=== PATIENT | male | born 1975 | race Two or more races ===

== ENCOUNTER 2017-09-30 22:35 | Inpatient (IN) | payer OTHER ==
[~2017-09-30] VITALS: Ht 180.3 cm; Wt 93.7 kg
[2017-09-30] MEDS ORDERED: REGULAR INSULIN 62.5 UNITS in SODIUM CHLORIDE 0.9% 249.375 ML IV PRN (22:38)
[2017-09-30] MEDS ORDERED: MIDAZOLAM 1 MG/ML, 5ML ONE (23:00)
[2017-09-30] MEDS ORDERED: PROPOFOL 10 MG/ML, 100ML IV ONE (23:00)
[2017-09-30] MEDS ORDERED: SODIUM CHLORIDE 0.9% 1,000ML IVBOLUS ONE (23:00)
[2017-09-30] MEDS ORDERED: PLEASE ENTER ALLERGIES MC SCH ×2 (23:00)
[2017-09-30] MEDS ORDERED: SUCCINYLCHOLINE 20 MG/ML, 10ML ONE (23:00)
[2017-09-30 23:15] LABS: HEMATOCRIT 48.1 % (39.2-51.8); HEMOGLOBIN 15.9 g/dL (13.7-18.0); WHITE BLOOD COUNT 23.5 x10^3/uL (3.4-10)
[2017-09-30 23:18] LABS: DIFF TOTAL CELLS COUNTED 100 CELL DIFF
[2017-09-30 23:24] LABS: ASPARTATE AMINO TRANSFERASE 74 U/L (15-37); BLOOD UREA NITROGEN 23 mg/dL (7-18)
[2017-09-30 23:30] LABS: VERIFY COUNTS? YES
[2017-09-30] MEDS ORDERED: SODIUM BICARBONATE 8.4% 150 MEQ in SODIUM CHLORIDE 0.45% 1,000 ML IV SCH (23:30)
[2017-09-30 23:31] LABS: ANISOCYTOSIS 1+; POLYCHROMASIA 1+
[2017-09-30 23:33] LABS: LARGE PLATELETS 1+
[2017-09-30] MEDS ORDERED: D5%-0.45% NACL 1,000 ML IV SCH (23:43)
[2017-09-30] MEDS ORDERED: MECL-76 PO (23:46)
[2017-09-30] MEDS: SODIUM CHLORIDE 0.9% 1,000 ML IV SCH (23:55)
[2017-10-01] MEDS ORDERED: hydrALAzine 20 MG/ML, 1ML IVPush PRN
[2017-10-01] MEDS ORDERED: ONDANSETRON 2MG/ML, 2ML IVPush PRN ×2
[2017-10-01] MEDS ORDERED: POTASSIUM CHLORIDE 40 MEQ in SODIUM CHLORIDE 0.9% 500 ML IV ONE
[2017-10-01] MEDS ORDERED: SODIUM CHLORIDE 0.9% 1,000 ML IV SCH
[2017-10-01] MEDS ORDERED: LORazepam 2 MG/ML, 1ML IVPush PRN
[2017-10-01] MEDS ORDERED: HYDROmorphone 2 MG/ML, 1ML IVPush PRN
[2017-10-01] MEDS ORDERED: SODIUM BICARB 8.4%, 50ML SYRINGE IVPB PRN
[2017-10-01] MEDS ORDERED: SODIUM CHLORIDE 0.9% 2,000 ML IV ONE
[2017-10-01] MEDS ORDERED: PIPERACILLIN/TAZO/PMX 3.375GM 50 ML ONE (00:27)
[2017-10-01] MEDS ORDERED: VANCOMYCIN PER PHARMACY MC PRN (00:30)
[2017-10-01 00:35] LABS: ABG COLLECTION SITE LEFT RADIAL; COLLATERAL CIRCULATION TESTING NORMAL
[2017-10-01] MEDS ORDERED: PHARMACOKINETIC CONSULTATION MC ONE (01:00)
[2017-10-01] MEDS ORDERED: VANCOMYCIN 1,500 MG in SODIUM CHLORIDE 0.9% 250 ML IV SCH (01:00)
[2017-10-01] MEDS ORDERED: PHARMACOKINETIC MONITORING MC PRN (01:00)
[2017-10-01] MEDS: PIPERACILLIN/TAZO/PMX 3.375GM 50 ML IV SCH ×3 (01:13→16:41)
[2017-10-01] MEDS: ENOXAPARIN 40 MG/0.4 ML SQ SCH (02:06)
[2017-10-01 02:44] LABS: BLOOD UREA NITROGEN 22 mg/dL (7-18)
[2017-10-01] MEDS: SODIUM CHLORIDE 0.9% 1,000 ML IV SCH ×6 (03:12→23:18)
[2017-10-01 04:03] LABS: BLOOD UREA NITROGEN 21 mg/dL (7-18)
[2017-10-01 04:23] VITALS: BP 133/65
[2017-10-01 04:27] LABS: ABG COLLECTION SITE RIGHT BRACHIAL
[2017-10-01 04:32] VITALS: BP 123/52
[2017-10-01] MEDS: REGULAR INSULIN 62.5 UNITS in SODIUM CHLORIDE 0.9% 249.375 ML IV PRN ×4 (05:10→21:30)
[2017-10-01] MEDS ORDERED: PROPOFOL 100 ML IV ONE (05:57)
[2017-10-01] MEDS ORDERED: LIDOCAINE-MPF 1%, 2ML ENDO PRN (06:30)
[2017-10-01] MEDS ORDERED: SENNOSIDES 8.8 MG/5 ML ORAL SOL NG PRN (06:30)
[2017-10-01] MEDS ORDERED: SODIUM CHLORIDE 0.9% 1,000ML IV SCH (06:30)
[2017-10-01] MEDS ORDERED: PHARMACY MAY ADJ FOR RENAL FX MC SCH (06:30)
[2017-10-01] MEDS ORDERED: SENNA/DOCUSATE TABLET NG PRN (06:30)
[2017-10-01] MEDS: ALBUTEROL/IPRATROPIUM 2.5MG/0.5MG, 3 ML INLINE SCH ×5 (06:30→22:25)
[2017-10-01] MEDS ORDERED: BISACODYL 10 MG SUPP PR PRN (06:30)
[2017-10-01] MEDS ORDERED: LACTULOSE 20 GM/30 ML UDC NG PRN (06:30)
[2017-10-01] MEDS: PROPOFOL 100 ML IV PRN ×4 (06:48→20:43)
[2017-10-01] MEDS: FAMOTIDINE 20 MG/2 ML IV SCH ×2 (06:49→18:40)
[2017-10-01 06:53] LABS: ABG COLLECTION SITE RIGHT RADIAL; COLLATERAL CIRCULATION TESTING NORMAL
[2017-10-01] MEDS ORDERED: SODIUM CHLORIDE 0.9% 1,000ML IVBOLUS ONE (07:00)
[2017-10-01] MEDS ORDERED: CETACAINE 50ML TP ONE (07:30)
[2017-10-01] MEDS ORDERED: PANTOPRAZOLE 40 MG IV IVPush SCH (07:30)
[2017-10-01 08:56] LABS: BLOOD UREA NITROGEN 22 mg/dL (7-18)
[2017-10-01] MEDS ORDERED: POTASSIUM CHLORIDE 20 MEQ PACKET PO ONE ×2 (11:00→20:30)
[2017-10-01] MEDS ORDERED: BENZOCAINE 20% SPRAY 0.5ML TP ONE (14:00)
[2017-10-01] MEDS: VANCOMYCIN 1,400 MG in SODIUM CHLORIDE 0.9% 250 ML IV SCH (15:10)
[2017-10-01 15:29] LABS: BLOOD UREA NITROGEN 20 mg/dL (7-18)
[2017-10-01 15:31] LABS: DAU SCREEN DISCLAIMER
[2017-10-01] MEDS: POTASSIUM CHLORIDE 20 MEQ PACKET PO SCH (18:39)
[2017-10-01] MEDS: FENTANYL PF 100 MCG/2ML IVPush PRN (19:41)
[2017-10-01 19:57] LABS: BLOOD UREA NITROGEN 19 mg/dL (7-18)
[2017-10-01] MEDS: D5%-0.45% NACL 1,000 ML IV SCH (23:12)
[2017-10-01 23:32] LABS: BLOOD UREA NITROGEN 17 mg/dL (7-18)
[2017-10-01] MEDS ORDERED: D5%-0.45% NACL 1,000 ML IV SCH (23:43)
[2017-10-02] MEDS: ENOXAPARIN 40 MG/0.4 ML SQ SCH (00:20)
[2017-10-02] MEDS: PIPERACILLIN/TAZO/PMX 3.375GM 50 ML IV SCH ×3 (00:20→16:25)
[2017-10-02] MEDS ORDERED: POTASSIUM CHLORIDE 20 MEQ PACKET PO SCH ×3 (01:00→06:00)
[2017-10-02] MEDS: POTASSIUM CHLORIDE 20 MEQ PACKET PO SCH ×2 (01:04→06:22)
[2017-10-02] MEDS: REGULAR INSULIN 62.5 UNITS in SODIUM CHLORIDE 0.9% 249.375 ML IV PRN ×3 (01:05→14:36)
[2017-10-02] MEDS: PROPOFOL 100 ML IV PRN ×6 (01:05→22:29)
[2017-10-02] MEDS: ALBUTEROL/IPRATROPIUM 2.5MG/0.5MG, 3 ML INLINE SCH ×6 (02:19→22:19)
[2017-10-02 03:14] LABS: ABG COLLECTION SITE LEFT RADIAL; COLLATERAL CIRCULATION TESTING NORMAL
[2017-10-02 03:27] LABS: ASPARTATE AMINO TRANSFERASE 44 U/L (15-37); BLOOD UREA NITROGEN 16 mg/dL (7-18)
[2017-10-02 04:10] VITALS: BP 132/69
[2017-10-02] MEDS: SODIUM CHLORIDE 0.9% 1,000 ML IV SCH ×2 (04:43→05:21)
[2017-10-02 06:03] LABS: HEMATOCRIT 33.2 % (39.2-51.8); HEMOGLOBIN 11.8 g/dL (13.7-18.0); WHITE BLOOD COUNT 8.8 x10^3/uL (3.4-10)
[2017-10-02 06:05] LABS: DIFF TOTAL CELLS COUNTED 100 CELL DIFF
[2017-10-02] MEDS: D5%-0.45% NACL 1,000 ML IV SCH (06:05)
[2017-10-02 06:09] LABS: VERIFY COUNTS? YES
[2017-10-02 06:10] LABS: ANISOCYTOSIS 1+
[2017-10-02 06:11] LABS: LARGE PLATELETS 1+; POLYCHROMASIA 1+
[2017-10-02] MEDS: FAMOTIDINE 20 MG/2 ML IV SCH ×2 (06:43→18:43)
[2017-10-02 08:14] LABS: BLOOD UREA NITROGEN 15 mg/dL (7-18)
[2017-10-02] MEDS: VANCOMYCIN 1,400 MG in SODIUM CHLORIDE 0.9% 250 ML IV SCH (08:55)
[2017-10-02] MEDS ORDERED: SODIUM PHOSPHATE 20 MMOL in SODIUM CHLORIDE 0.9% 500 ML IV ONE ×2 (09:00→17:30)
[2017-10-02] MEDS: POTASSIUM CHLORIDE 20 MEQ in D5%-0.45% NACL 1,000 ML IV SCH ×3 (10:17→23:47)
[2017-10-02 11:26] LABS: RAPID INFLUENZA A Negative (Negative)
[2017-10-02 11:27] LABS: RAPID INFLUENZA B Negative (Negative)
[2017-10-02 12:21] LABS: BLOOD UREA NITROGEN 14 mg/dL (7-18)
[2017-10-02] MEDS ORDERED: POTASSIUM CHLORIDE 10% 40 MEQ/30 ML UDC PO ONE (13:30)
[2017-10-02 15:39] LABS: BLOOD UREA NITROGEN 14 mg/dL (7-18)
[2017-10-02] MEDS ORDERED: POTASSIUM CHLORIDE 10% 20 MEQ/15 ML UDC PO ONE (16:30)
[2017-10-02 19:25] LABS: BLOOD UREA NITROGEN 14 mg/dL (7-18)
[2017-10-02] MEDS ORDERED: BISACODYL 10 MG SUPP PR PRN (20:00)
[2017-10-02] MEDS ORDERED: PHARMACOKINETIC MONITORING MC PRN (20:00)
[2017-10-02] MEDS ORDERED: ONDANSETRON 2MG/ML, 2ML IVPush PRN (20:00)
[2017-10-02] MEDS ORDERED: hydrALAzine 20 MG/ML, 1ML IVPush PRN (20:00)
[2017-10-02] MEDS ORDERED: LORazepam 2 MG/ML, 1ML IVPush PRN (20:00)
[2017-10-02] MEDS ORDERED: VANCOMYCIN PER PHARMACY MC PRN (20:00)
[2017-10-02] MEDS ORDERED: PHARMACY MAY ADJ FOR RENAL FX MC SCH (20:00)
[2017-10-02] MEDS: REGULAR INSULIN IV PRN (21:01)
[2017-10-02] MEDS: SODIUM CHLORIDE 0.9% IV PRN (21:01)
[2017-10-02] MEDS ORDERED: POTASSIUM CHLORIDE 20 MEQ in D5%-0.45% NACL 1,000 ML IV SCH (23:43)
[2017-10-02 23:48] LABS: BLOOD UREA NITROGEN 14 mg/dL (7-18)
[2017-10-03] MEDS: ENOXAPARIN 40 MG/0.4 ML SQ SCH (00:24)
[2017-10-03] MEDS: PIPERACILLIN/TAZO/PMX 3.375GM 50 ML IV SCH ×3 (00:24→15:50)
[2017-10-03] MEDS ORDERED: POTASSIUM CHLORIDE 20 MEQ PACKET PO ONE (00:30)
[2017-10-03] MEDS ORDERED: POTASSIUM PHOSPHATE 44 MEQ in SODIUM CHLORIDE 0.9% 500 ML IV ONE ×2 (01:00→14:30)
[2017-10-03] MEDS: VANCOMYCIN 1,400 MG in SODIUM CHLORIDE 0.9% 250 ML IV SCH ×2 (01:20→21:25)
[2017-10-03] MEDS: ALBUTEROL/IPRATROPIUM 2.5MG/0.5MG, 3 ML INLINE SCH ×6 (02:26→22:16)
[2017-10-03 03:02] LABS: BLOOD UREA NITROGEN 14 mg/dL (7-18)
[2017-10-03] MEDS: PROPOFOL 100 ML IV PRN ×4 (03:10→17:38)
[2017-10-03 04:00] VITALS: BP 110/64
[2017-10-03 04:16] LABS: ABG COLLECTION SITE RIGHT BRACHIAL
[2017-10-03 04:29] LABS: BLOOD UREA NITROGEN 14 mg/dL (7-18)
[2017-10-03 04:32] LABS: HEMATOCRIT 27.2 % (39.2-51.8); HEMOGLOBIN 9.5 g/dL (13.7-18.0); WHITE BLOOD COUNT 9.1 x10^3/uL (3.4-10)
[2017-10-03 05:39] LABS: DIFF TOTAL CELLS COUNTED 100 CELL DIFF
[2017-10-03 05:43] LABS: VERIFY COUNTS? YES
[2017-10-03 05:44] LABS: ANISOCYTOSIS 1+; LARGE PLATELETS 1+
[2017-10-03] MEDS: POTASSIUM CHLORIDE 20 MEQ in D5%-0.45% NACL 1,000 ML IV SCH (06:09)
[2017-10-03] MEDS: FAMOTIDINE 20 MG/2 ML IV SCH ×2 (06:31→17:37)
[2017-10-03] MEDS: REGULAR INSULIN IV PRN ×2 (08:33→22:28)
[2017-10-03] MEDS: SODIUM CHLORIDE 0.9% IV PRN ×2 (08:33→22:28)
[2017-10-03] MEDS: POTASSIUM CHLORIDE 20 MEQ in DEXTROSE 5% 1,000 ML IV SCH ×3 (08:49→22:27)
[2017-10-03 09:34] LABS: BLOOD UREA NITROGEN 14 mg/dL (7-18)
[2017-10-03 12:53] LABS: POTASSIUM,URINE RANDOM 28 mmol/L
[2017-10-03 13:10] LABS: BLOOD UREA NITROGEN 14 mg/dL (7-18)
[2017-10-03] MEDS: FENTANYL PF 100 MCG/2ML IVPush PRN ×5 (14:46→22:27)
[2017-10-03 19:27] LABS: BLOOD UREA NITROGEN 15 mg/dL (7-18)
[2017-10-03 23:00] LABS: BLOOD UREA NITROGEN 16 mg/dL (7-18)
[2017-10-04] MEDS: ENOXAPARIN 40 MG/0.4 ML SQ SCH (00:05)
[2017-10-04] MEDS: PIPERACILLIN/TAZO/PMX 3.375GM 50 ML IV SCH ×3 (00:05→17:03)
[2017-10-04] MEDS: ALBUTEROL/IPRATROPIUM 2.5MG/0.5MG, 3 ML INLINE SCH ×6 (02:30→22:13)
[2017-10-04 03:18] LABS: BLOOD UREA NITROGEN 16 mg/dL (7-18)
[2017-10-04] MEDS: PROPOFOL 100 ML IV PRN ×4 (03:33→21:00)
[2017-10-04] MEDS: FENTANYL PF 100 MCG/2ML IVPush PRN ×5 (03:33→18:07)
[2017-10-04 04:00] VITALS: BP 99/58
[2017-10-04] MEDS: FAMOTIDINE 20 MG/2 ML IV SCH ×2 (05:56→19:28)
[2017-10-04] MEDS: POTASSIUM CHLORIDE 20 MEQ in DEXTROSE 5% 1,000 ML IV SCH ×3 (06:30→19:29)
[2017-10-04 06:41] LABS: ABG COLLECTION SITE LEFT RADIAL; COLLATERAL CIRCULATION TESTING NORMAL
[2017-10-04 06:45] LABS: HEMATOCRIT 28.7 % (39.2-51.8); WHITE BLOOD COUNT 8.9 x10^3/uL (3.4-10)
[2017-10-04 06:50] LABS: BLOOD UREA NITROGEN 17 mg/dL (7-18)
[2017-10-04] MEDS ORDERED: MAGNESIUM SULFATE PMX 4GM/100M 100 ML IV ONE (07:30)
[2017-10-04 11:10] LABS: BLOOD UREA NITROGEN 16 mg/dL (7-18)
[2017-10-04 12:23] LABS: FERRITIN 640.8 ng/mL (26-388)
[2017-10-04 15:16] LABS: BLOOD UREA NITROGEN 15 mg/dL (7-18)
[2017-10-04] MEDS: VANCOMYCIN 1,400 MG in SODIUM CHLORIDE 0.9% 250 ML IV SCH (15:26)
[2017-10-04] MEDS: REGULAR INSULIN IV PRN ×2 (17:04→22:03)
[2017-10-04] MEDS: SODIUM CHLORIDE 0.9% IV PRN ×2 (17:04→22:03)
[2017-10-04 19:26] LABS: BLOOD UREA NITROGEN 16 mg/dL (7-18)
[2017-10-04 23:55] LABS: BLOOD UREA NITROGEN 15 mg/dL (7-18)
[2017-10-05] MEDS: PROPOFOL 100 ML IV PRN ×5 (01:25→18:49)
[2017-10-05] MEDS: PIPERACILLIN/TAZO/PMX 3.375GM 50 ML IV SCH ×3 (01:29→15:55)
[2017-10-05] MEDS: ENOXAPARIN 40 MG/0.4 ML SQ SCH (01:29)
[2017-10-05] MEDS: ALBUTEROL/IPRATROPIUM 2.5MG/0.5MG, 3 ML INLINE SCH ×6 (02:13→22:30)
[2017-10-05] MEDS: FENTANYL PF 100 MCG/2ML IVPush PRN ×2 (03:53→09:07)
[2017-10-05 04:00] VITALS: BP 146/84
[2017-10-05 04:48] LABS: ABG COLLECTION SITE RIGHT RADIAL; COLLATERAL CIRCULATION TESTING NORMAL
[2017-10-05 04:55] LABS: BLOOD UREA NITROGEN 15 mg/dL (7-18)
[2017-10-05] MEDS: POTASSIUM CHLORIDE 20 MEQ in DEXTROSE 5% 1,000 ML IV SCH ×2 (05:27→07:38)
[2017-10-05 06:13] LABS: HEMATOCRIT 25.9 % (39.2-51.8); HEMOGLOBIN 9.3 g/dL (13.7-18.0); WHITE BLOOD COUNT 7.9 x10^3/uL (3.4-10)
[2017-10-05 06:47] LABS: DIFF TOTAL CELLS COUNTED 100 CELL DIFF
[2017-10-05 06:49] LABS: VERIFY COUNTS? YES
[2017-10-05 06:50] LABS: ANISOCYTOSIS 1+; LARGE PLATELETS 1+; POLYCHROMASIA 1+
[2017-10-05 07:18] LABS: BLOOD UREA NITROGEN 14 mg/dL (7-18)
[2017-10-05] MEDS ORDERED: INSULIN DETEMIR 100 UNITS/ML, PEN SQ-INSULIN SCH (08:30)
[2017-10-05] MEDS: VANCOMYCIN 1,400 MG in SODIUM CHLORIDE 0.9% 250 ML IV SCH (09:00)
[2017-10-05] MEDS: FAMOTIDINE 20 MG/2 ML IV SCH ×2 (09:07→20:28)
[2017-10-05] MEDS: THIAMINE 100 MG in SODIUM CHLORIDE 0.9% 50 ML IV SCH (09:07)
[2017-10-05] MEDS: INSULIN ASPART 100 UNITS/ML, 3ML PEN MEDIUM DOSE SS SQ-INSULIN SCH ×2 (09:24→15:55)
[2017-10-05] MEDS ORDERED: VASOPRESSIN 100 UNIT in SODIUM CHLORIDE 0.9% 495 ML IV PRN (10:00)
[2017-10-05 10:51] LABS: BLOOD UREA NITROGEN 14 mg/dL (7-18)
[2017-10-05] MEDS ORDERED: VANCOMYCIN 1,500 MG in SODIUM CHLORIDE 0.9% 250 ML IV SCH (12:00)
[2017-10-05 15:15] LABS: BLOOD UREA NITROGEN 17 mg/dL (7-18)
[2017-10-05] MEDS ORDERED: INSULIN ASPART 100 UNITS/ML, PEN SQ-INSULIN ONE (17:00)
[2017-10-05] MEDS: INSULIN ASPART 100 UNITS/ML, PEN SQ-INSULIN SCH ×2 (18:51→23:17)
[2017-10-05 19:07] LABS: BLOOD UREA NITROGEN 18 mg/dL (7-18)
[2017-10-05] MEDS: INSULIN DETEMIR 100 UNITS/ML, PEN SQ-INSULIN SCH (20:28)
[2017-10-05 23:33] LABS: BLOOD UREA NITROGEN 21 mg/dL (7-18)
[2017-10-06] MEDS: ENOXAPARIN 40 MG/0.4 ML SQ SCH (00:10)
[2017-10-06] MEDS: PIPERACILLIN/TAZO/PMX 3.375GM 50 ML IV SCH ×3 (00:10→16:14)
[2017-10-06] MEDS: PROPOFOL 100 ML IV PRN ×4 (00:11→18:56)
[2017-10-06] MEDS: ALBUTEROL/IPRATROPIUM 2.5MG/0.5MG, 3 ML INLINE SCH ×6 (02:01→22:04)
[2017-10-06] MEDS: FENTANYL PF 100 MCG/2ML IVPush PRN ×2 (02:55→12:07)
[2017-10-06] MEDS: INSULIN ASPART 100 UNITS/ML, PEN SQ-INSULIN SCH ×6 (03:09→23:23)
[2017-10-06 03:27] LABS: ABG COLLECTION SITE RIGHT RADIAL; COLLATERAL CIRCULATION TESTING NORMAL
[2017-10-06 03:32] LABS: HEMATOCRIT 27.4 % (39.2-51.8); HEMOGLOBIN 9.4 g/dL (13.7-18.0); WHITE BLOOD COUNT 8.9 x10^3/uL (3.4-10)
[2017-10-06 03:39] LABS: BLOOD UREA NITROGEN 23 mg/dL (7-18)
[2017-10-06 04:00] VITALS: BP 143/87
[2017-10-06 07:37] LABS: BLOOD UREA NITROGEN 23 mg/dL (7-18)
[2017-10-06] MEDS: INSULIN DETEMIR 100 UNITS/ML, PEN SQ-INSULIN SCH ×2 (07:47→19:49)
[2017-10-06] MEDS: FAMOTIDINE 20 MG/2 ML IV SCH ×2 (07:47→21:54)
[2017-10-06] MEDS: THIAMINE 100 MG in SODIUM CHLORIDE 0.9% 50 ML IV SCH (08:41)
[2017-10-07] MEDS: ENOXAPARIN 40 MG/0.4 ML SQ SCH ×2 (00:09→23:58)
[2017-10-07] MEDS: PROPOFOL 100 ML IV PRN ×2 (00:10→03:13)
[2017-10-07] MEDS: PIPERACILLIN/TAZO/PMX 3.375GM 50 ML IV SCH ×2 (00:48→09:02)
[2017-10-07] MEDS: ALBUTEROL/IPRATROPIUM 2.5MG/0.5MG, 3 ML INLINE SCH ×3 (02:08→10:06)
[2017-10-07] MEDS: INSULIN ASPART 100 UNITS/ML, PEN SQ-INSULIN SCH ×6 (03:16→23:57)
[2017-10-07 04:00] VITALS: BP 132/81
[2017-10-07 05:07] LABS: ABG COLLECTION SITE RIGHT RADIAL; COLLATERAL CIRCULATION TESTING NORMAL
[2017-10-07 05:08] LABS: BLOOD UREA NITROGEN 24 mg/dL (7-18)
[2017-10-07 05:12] LABS: ASPARTATE AMINO TRANSFERASE 54 U/L (15-37)
[2017-10-07 06:32] LABS: HEMATOCRIT 28.3 % (39.2-51.8); HEMOGLOBIN 9.6 g/dL (13.7-18.0); WHITE BLOOD COUNT 8.4 x10^3/uL (3.4-10)
[2017-10-07 06:59] LABS: DIFF TOTAL CELLS COUNTED 100 CELL DIFF
[2017-10-07 07:01] LABS: VERIFY COUNTS? YES
[2017-10-07 07:02] LABS: ANISOCYTOSIS 1+; POLYCHROMASIA 1+
[2017-10-07] MEDS: INSULIN DETEMIR 100 UNITS/ML, PEN SQ-INSULIN SCH ×2 (07:53→19:47)
[2017-10-07] MEDS: FAMOTIDINE 20 MG/2 ML IV SCH ×2 (09:02→21:43)
[2017-10-07] MEDS: THIAMINE 100 MG in SODIUM CHLORIDE 0.9% 100 ML IV SCH (10:08)
[2017-10-07] MEDS: PIPERACILLIN/TAZO 3.375 GM in SODIUM CHLORIDE 0.9% 50 ML IV SCH ×2 (16:55→23:58)
[2017-10-08] MEDS: INSULIN ASPART 100 UNITS/ML, PEN SQ-INSULIN SCH ×4 (03:45→17:51)
[2017-10-08 04:00] VITALS: BP 151/86
[2017-10-08 04:27] LABS: ABG COLLECTION SITE RIGHT RADIAL; COLLATERAL CIRCULATION TESTING NORMAL
[2017-10-08 04:42] LABS: BLOOD UREA NITROGEN 22 mg/dL (7-18); HEMOGLOBIN 9.4 g/dL (13.7-18.0); WHITE BLOOD COUNT 7.6 x10^3/uL (3.4-10)
[2017-10-08 04:46] LABS: ASPARTATE AMINO TRANSFERASE 53 U/L (15-37)
[2017-10-08] MEDS: INSULIN DETEMIR 100 UNITS/ML, PEN SQ-INSULIN SCH ×2 (07:58→20:52)
[2017-10-08] MEDS: THIAMINE 100 MG in SODIUM CHLORIDE 0.9% 100 ML IV SCH (08:00)
[2017-10-08] MEDS: FAMOTIDINE 20 MG/2 ML IV SCH ×2 (08:45→20:53)
[2017-10-08] MEDS: PIPERACILLIN/TAZO 3.375 GM in SODIUM CHLORIDE 0.9% 50 ML IV SCH ×2 (08:45→17:47)
[2017-10-08] MEDS ORDERED: PNEUMOCOCCAL 23 VACCINE IM-VACC ONE (10:30)
[2017-10-08] MEDS ORDERED: FLU VACC QS2017-18 (36MOS+) UP/PF 0.5 ML IM-VACC ONE (10:30)
[2017-10-08 10:37] VITALS: BP 168/103
[2017-10-08 12:30] VITALS: BP 165/101
[2017-10-08 21:33] VITALS: BP 158/84
[2017-10-08] MEDS: ENOXAPARIN 40 MG/0.4 ML SQ SCH (23:54)
[2017-10-09] MEDS: INSULIN ASPART 100 UNITS/ML, PEN SQ-INSULIN SCH ×5 (00:38→21:44)
[2017-10-09] MEDS: PIPERACILLIN/TAZO 3.375 GM in SODIUM CHLORIDE 0.9% 50 ML IV SCH ×3 (01:31→16:45)
[2017-10-09 02:40] VITALS: BP 162/92
[2017-10-09 02:48] VITALS: BP 162/92
[2017-10-09 05:06] LABS: HEMATOCRIT 27.8 % (39.2-51.8); HEMOGLOBIN 9.5 g/dL (13.7-18.0); WHITE BLOOD COUNT 7.7 x10^3/uL (3.4-10)
[2017-10-09 05:37] LABS: BLOOD UREA NITROGEN 22 mg/dL (7-18)
[2017-10-09 07:17] VITALS: BP 166/103
[2017-10-09] MEDS: FAMOTIDINE 20 MG/2 ML IV SCH (08:38)
[2017-10-09] MEDS: THIAMINE 100 MG in SODIUM CHLORIDE 0.9% 100 ML IV SCH (08:39)
[2017-10-09] MEDS: INSULIN DETEMIR 100 UNITS/ML, PEN SQ-INSULIN SCH ×2 (08:41→20:10)
[2017-10-09] MEDS: VANCOMYCIN 50 MG/ML ORAL SUSP PO SCH ×3 (11:16→22:47)
[2017-10-09 13:45] VITALS: BP 163/98
[2017-10-09 18:34] VITALS: BP 135/80
[2017-10-10] MEDS: ENOXAPARIN 40 MG/0.4 ML SQ SCH (00:13)
[2017-10-10 01:11] VITALS: BP 131/85
[2017-10-10] MEDS: PIPERACILLIN/TAZO 3.375 GM in SODIUM CHLORIDE 0.9% 50 ML IV SCH ×3 (01:28→16:32)
[2017-10-10 04:16] VITALS: BP 123/81
[2017-10-10] MEDS: VANCOMYCIN 50 MG/ML ORAL SUSP PO SCH ×4 (04:43→22:27)
[2017-10-10 05:02] LABS: BLOOD UREA NITROGEN 19 mg/dL (7-18); HEMATOCRIT 28.2 % (39.2-51.8)
[2017-10-10 06:51] VITALS: BP 154/91
[2017-10-10] MEDS: INSULIN ASPART 100 UNITS/ML, PEN SQ-INSULIN SCH ×4 (07:00→21:00)
[2017-10-10] MEDS ORDERED: POTASSIUM CHLORIDE 20 MEQ TAB.ER.PRT PO ONE (08:30)
[2017-10-10] MEDS: THIAMINE 100 MG in SODIUM CHLORIDE 0.9% 100 ML IV SCH (08:49)
[2017-10-10] MEDS: SODIUM CHLORIDE 0.45% 1,000 ML IV SCH ×2 (08:49→22:28)
[2017-10-10] MEDS: INSULIN DETEMIR 100 UNITS/ML, PEN SQ-INSULIN SCH (10:09)
[2017-10-10 13:43] VITALS: BP 138/88
[2017-10-10 19:39] VITALS: BP 144/84
[2017-10-10] MEDS ORDERED: INSULIN DETEMIR 100 UNITS/ML, PEN SQ-INSULIN SCH (21:00)
[2017-10-11] MEDS: ENOXAPARIN 40 MG/0.4 ML SQ SCH (00:23)
[2017-10-11] MEDS: PIPERACILLIN/TAZO 3.375 GM in SODIUM CHLORIDE 0.9% 50 ML IV SCH ×2 (01:37→09:16)
[2017-10-11 01:40] VITALS: BP 129/85
[2017-10-11] MEDS: VANCOMYCIN 50 MG/ML ORAL SUSP PO SCH ×4 (04:18→21:11)
[2017-10-11 04:20] VITALS: BP 155/96
[2017-10-11 04:52] LABS: BLOOD UREA NITROGEN 15 mg/dL (7-18)
[2017-10-11 04:56] LABS: HEMATOCRIT 27.4 % (39.2-51.8); HEMOGLOBIN 9.4 g/dL (13.7-18.0); WHITE BLOOD COUNT 8.2 x10^3/uL (3.4-10)
[2017-10-11] MEDS: INSULIN ASPART 100 UNITS/ML, PEN SQ-INSULIN SCH ×4 (07:00→21:00)
[2017-10-11 07:38] VITALS: BP 135/84
[2017-10-11] MEDS: THIAMINE 100 MG in SODIUM CHLORIDE 0.9% 100 ML IV SCH (09:15)
[2017-10-11] MEDS: INSULIN DETEMIR 100 UNITS/ML, PEN SQ-INSULIN SCH (09:16)
[2017-10-11] MEDS: SODIUM CHLORIDE 0.45% 1,000 ML IV SCH (11:45)
[2017-10-11 13:26] VITALS: BP 158/94
[2017-10-11] MEDS ORDERED: LORazepam 0.5MG TABLET PO PRN (15:30)
[2017-10-11] MEDS: AMPICILLIN/SULBACTAM 3 GM in SODIUM CHLORIDE 0.9% 100 ML IV SCH ×2 (15:53→21:10)
[2017-10-11] MEDS ORDERED: INSULIN DETEMIR 100 UNITS/ML, PEN SQ-INSULIN SCH (21:00)
[2017-10-12] MEDS: ENOXAPARIN 40 MG/0.4 ML SQ SCH (01:48)
[2017-10-12 02:24] VITALS: BP 153/89
[2017-10-12] MEDS: SODIUM CHLORIDE 0.45% 1,000 ML IV SCH ×2 (02:37→15:11)
[2017-10-12] MEDS: AMPICILLIN/SULBACTAM 3 GM in SODIUM CHLORIDE 0.9% 100 ML IV SCH ×3 (05:03→15:55)
[2017-10-12] MEDS: VANCOMYCIN 50 MG/ML ORAL SUSP PO SCH ×2 (05:03→10:22)
[2017-10-12 06:11] LABS: HEMOGLOBIN 10.6 g/dL (13.7-18.0); WHITE BLOOD COUNT 8.9 x10^3/uL (3.4-10)
[2017-10-12] MEDS: INSULIN ASPART 100 UNITS/ML, PEN SQ-INSULIN SCH ×3 (06:16→16:08)
[2017-10-12 07:14] VITALS: BP 155/93
[2017-10-12] MEDS: THIAMINE 100 MG in SODIUM CHLORIDE 0.9% 100 ML IV SCH (09:10)
[2017-10-12 10:15] LABS: BLOOD UREA NITROGEN 11 mg/dL (7-18)
[2017-10-12] MEDS: INSULIN DETEMIR 100 UNITS/ML, PEN SQ-INSULIN SCH (10:22)
[2017-10-12 12:42] VITALS: BP 148/80
[2017-10-12] MEDS ORDERED: AMOX1TAB64 PO (15:55)
[2017-10-12] MEDS ORDERED: FOLI-17 PO (15:55)
[2017-10-12] MEDS ORDERED: INSU100I28 SQ-INSULIN ×2 (15:55)
[2017-10-12] MEDS ORDERED: THIA100T10 PO (15:55)
[2017-10-12 16:23] VITALS: BP_SYST 161; BP_SYST 168; BP_DIAS 104; BP_DIAS 97
== END 2017-10-12 17:25 | disposition home or self-care (01) | DRG 207 ==
LOC: ED 23:26 → EDIP 23:56 → CCU 10-01 00:31 → 4NOR 10-08 10:20
PROVIDERS: ADMIT Family Medicine; ATTEND Family Medicine
PROC: 0T9B70Z Drainage of Bladder with Drainage Device, Via Natural or Artificial Opening (ICD-10-PCS; principal; 2017-10-01)
PROC: 5A1955Z Respiratory Ventilation, Greater than 96 Consecutive Hours (ICD-10-PCS; 2017-10-01)
PROC: 0BH17EZ Insertion of Endotracheal Airway into Trachea, Via Natural or Artificial Opening (ICD-10-PCS; 2017-10-01)
DX: J96.00 Acute respiratory failure, unspecified whether with hypoxia or hypercapnia (principal); N17.0 Acute kidney failure with tubular necrosis; G93.41 Metabolic encephalopathy; E43 Unspecified severe protein-calorie malnutrition; E11.10 Type 2 diabetes mellitus with ketoacidosis without coma; J18.9 Pneumonia, unspecified organism; K85.90 Acute pancreatitis without necrosis or infection, unspecified; E87.0 Hyperosmolality and hypernatremia; D50.9 Iron deficiency anemia, unspecified; E11.22 Type 2 diabetes mellitus with diabetic chronic kidney disease; E11.649 Type 2 diabetes mellitus with hypoglycemia without coma; Z68.28 Body mass index [BMI] 28.0-28.9, adult; E87.6 Hypokalemia; N18.9 Chronic kidney disease, unspecified; K81.9 Cholecystitis, unspecified
CPT/HCPCS: 36415; 36600; 70450; 71010; 74000; 76705; 80048; 80053; 80202; 80307; 81001; 82010; 82040; 82088; 82436; 82533; 82728; 82803; 82805; 82962; 83036; 83540; 83550; 83605; 83690; 83735; 83930; 83935; 84100; 84133; 84145; 84244; 84300; 84443; 84478; 85025; 87040; 87070; 87077; 87081; 87086; 87186; 87205; 87324; 87400; 93005; 94002; 94003; 94150; 94640; 96361; 96365; 96375; J0295; J1170; J1650; J1815; J2250; J2543; J2704; J3010; J3370; J3411; J3480; J7070; J7620; G0479; J0330; J3475; J7030; J7040; J7050; S0028